=== PATIENT | female | born 1990 | race African-American/Black ===

== ENCOUNTER 2017-08-09 14:05 | Emergency (ER) | payer MEDICAID ==
[~2017-08-09] VITALS: Ht 175.3 cm; Wt 94.0 kg
[~2017-08-09 14:05] MED LIST: FERR1TAB25 PO
[2017-08-09 18:11] VITALS: BP 154/84
[2017-08-09] MEDS ORDERED: IBUPROFEN 600MG TABLET PO ONE (18:15)
[2017-08-09] MEDS ORDERED: ACETAMINOPHEN 500MG TABLET PO ONE (18:15)
== END 2017-08-09 18:52 | disposition home or self-care (01) ==
LOC: ER 15:26
DX: M65.4 Radial styloid tenosynovitis [de Quervain] (principal)
CPT/HCPCS: 29125; 81025; 99283